=== PATIENT | male | born 1970 | race Caucasian/White ===

== ENCOUNTER 2017-01-15 15:42 | Emergency (ER) | payer BC, OTHER ==
[~2017-01-15] VITALS: Ht 162.6 cm; Wt 108.0 kg
[2017-01-15 15:57] VITALS: Ht 162.6 cm; Wt 108.0 kg
[2017-01-15 16:36] LABS: ADD SCAN DIFF NO
[2017-01-15 16:41] LABS: BASOPHIL # 0.1 10^3/ul (0.0-0.1); BASOPHILS % 0.4 % (0.0-2.0); EOSINOPHILS # 0.2 10^3/ul (0.0-0.5); EOSINOPHILS % 1.7 % (0.0-7.0); HEMATOCRIT 43.3 % (42.0-52.0); HEMOGLOBIN 14.9 g/dl (14.0-18.0); LYMPHOCYTES # 2.1 10^3/ul (0.8-2.9); LYMPHOCYTES % 17.9 % (15.0-51.0); MEAN CORPUSCULAR HEMOGLOBIN 31.5 pg (29.0-33.0); MEAN CORPUSCULAR HGB CONC 34.4 g/dl (32.0-37.0); MEAN CORPUSCULAR VOLUME 91.5 fl (82.0-101.0); MONOCYTE # 1.1 10^3/ul (0.3-0.9); MONOCYTES % 9.2 % (0.0-11.0); NEUTROPHIL # 8.1 10^3/ul (1.6-7.5); NEUTROPHILS % 70.3 % (39.0-77.0); PLATELET COUNT 240 10^3/UL (140-415); RED BLOOD COUNT 4.73 10^6/ul (4.70-6.10); RED CELL DISTRIBUTION WIDTH 13.1 % (11.5-14.5); WHITE BLOOD COUNT 11.5 10^3/ul (4.8-10.8)
[2017-01-15 16:42] LABS: ADD UMIC YES; UR ASCORBIC ACID NEGATIVE (NEGATIVE); UR BILIRUBIN (Dip) NEGATIVE (NEGATIVE); UR BLOOD (Dip) 2+ mg/dL (NEGATIVE); UR CLARITY CLEAR (CLEAR); UR COLOR YELLOW (YELLOW); UR GLUCOSE (Dip) NEGATIVE (NEGATIVE); UR KETONES (Dip) NEGATIVE (NEGATIVE); UR LEUKOCYTE ESTERASE (Dip) TRACE Leu/ul (NEGATIVE); UR NITRITE (Dip) NEGATIVE (NEGATIVE); UR RBC 6 /HPF (0-5); UR SPECIFIC GRAVITY (Dip) 1.012 (1.003-1.030); UR TOTAL PROTEIN (Dip) NEGATIVE (NEGATIVE); UR UROBILINOGEN (Dip) NEGATIVE (NEGATIVE)
[2017-01-15 16:57] LABS: ALBUMIN/GLOBULIN RATIO 1.31; BILIRUBIN,INDIRECT 0.2 mg/dl (0-1.1); BILIRUBIN,TOTAL 0.2 mg/dl (0.2-1.3); CALCIUM 9.8 mg/dl (8.4-10.2); CREATININE 1.7 mg/dl (0.61-1.24); POTASSIUM 4.6 mmol/L (3.5-5.1); TOTAL PROTEIN 8.8 g/dl (6.1-8.1)
--- NOTE | 2017-01-15 19:04 | RADRPT ---
PROCEDURE: CT abdomen and pelvis without intravenous contrast. CLINICAL INDICATION: Right lower quadrant pain. TECHNIQUE: CT of the abdomen/pelvis was performed utilizing axial images with reconstructions in s agittal and coronal planes. The administered radiation dose is CTDI 23 mGy, DLP 1372.12 mGy-cm. One or more of the following dose reduction techniques were used: Automated exposure control, Adjustment of the mA and/or kV according to patient size, or Use of iterative reconstruction technique. COMPARISON: There are no similar studies submitted for comparison. FINDINGS: Lung bases: The lung bases are clear.The heart is normal size without pericardial effusion. CT ABDOMEN: Evaluation of the abdominal viscera is limited without intravenous contrast. Gastrointestinal tract: There is no bowel obstruction.The appendix is normal size without inflammato ry changes.No abnormal colonic wall thickening is identified.There is no pneumoperitoneum. Liver: The liver is normal in size. There is hepatic fatty infiltration. There is no intrahepatic d uctal dilatation. Gallbladder: The gallbladder is grossly unremarkable. Pancreas: The pancreas is grossly unremarkable. Spleen: The spleen is normal in size. Kidneys: The kidneys are normal in size and contour. There are multiple nonobstructive bilateral apryl al calculi with the largest in the right upper pole measuring 8 mm. There is an obstructing right mi d the ureteral calculus measuring 5 mm with mild right hydronephrosis. There is mild right periuret eral stranding. There is no left-sided hydronephrosis. Adrenal glands: The bilateral adrenal glands are unremarkable. Retroperitoneum: There is no retroperitoneal adenopathy.The aorta is normal in caliber. There is a s mall fat containing umbilical hernia. CT PELVIS: Pelvic organs: The prostate is normal size. There are coarse calcifications in the prostate suggest ing chronic prostatitis. Bladder: The bladder is not distended limiting evaluation. There is no pelvic free fluid.No pelvic adenopathy is identified. Osseous structures: No destructive lytic or blastic osseous lesion is identified. There is severe di sk space narrowing at L4-5. IMPRESSION: Evaluation of the abdominal viscera is limited without intravenous contrast. 1. There is a 5 mm obstructing right mid ureteral calculus with mild right hydronephrosis as well a s mild right periureteral stranding. 2. Multiple nonobstructive bilateral renal calculi with the largest in the right upper pole measuri ng 8 mm. 3. Hepatic fatty infiltration. Correlate with LFTs. 4. Prostatic calcifications suggesting chronic prostatitis. Correlate clinically. Further findings as detailed above. RPTAT: HVF .Gerard Jackson MD, Date Time Electronically viewed and signed by .Gerard Jackson MD, on 01/15/2017 19:04 .F/
[2017-01-15] MEDS ORDERED: HYDR-906 PO (19:11)
[2017-01-15] MEDS ORDERED: IBUP800T25 PO (19:11)
--- NOTE | 2017-01-15 19:15 | ERD ---
ER Documentation Chief Complaint Date/Time DATE: 01/15/17 TIME: 19:12 Chief Complaint right side ap x 1 week; no n/v/d HPI 46-year-old male is complaining of right-sided mid abdominal pain that he has had for about 1 week. States the pain is sharp in 8 out of 10 and constant nonradiating. He denies any fever. He denies any nausea or vomiting or diarrhea. He denies any dysuria hematuria or increased urinary frequency. He denies any change with food. ROS All systems reviewed and are negative except as per history of present illness. Medications Home Meds Active Scripts Hydrocodone/Acetaminophen (Orange 5-325 Tablet) 1 Each Tablet, 1 TAB PO Q6H Y for PAIN, #20 TAB Prov:DAMON CASTRO PA-C 01/15/17 Ibuprofen* (Motrin*) 800 Mg Tab, 800 MG PO Q6, #30 TAB Prov:DAMON CASTRO PA-C 01/15/17 Allergies Allergies: Coded Allergies: No Known Allergy (Unverified , 11/25/14) PMhx/Soc Medical and Surgical Hx: pt denies Medical Hx, pt denies Surgical Hx Hx Alcohol Use: No Hx Substance Use: No Hx Tobacco Use: Yes Smoking Status: Current every day smoker FmHx Family History: No diabetes Physical Exam Vitals Vital Signs Date Time Temp Pulse Resp B/P Pulse Ox O2 Delivery O2 Flow Rate FiO2 01/15/17 15:57 98.2 82 18 168/117 98 Physical Exam General: well developed, well nourished, alert, nontoxic, no distress Head: normocephalic, atraumatic Neck: Supple, nontender, no lymphadenopathy, no midline tenderness Respiratory: Clear to auscaultation bilaterally, speaks in full sentences, no use of accesory muscles or labored breathing, no rales, ronchi, or wheezing Cardiovascular: RRR, No murmurs GI: soft, non tender, non distended, negative murphys sign, negative mcburneys point tenderness, no cva tenderness bilaterally, no rebound or guarding Back: no midline tenderness, no step offs or bony abnormalities, sensation to light touch in tact Result Diagram: 01/15/17 1625 01/15/17 1615 Results 24 hrs Laboratory Tests Test 01/15/17 16:15 6/24/17 16:25 Sodium Level 144mmol/L Potassium Level 4.6mmol/L Chloride Level 107mmol/L Carbon Dioxide Level 24mmol/L Anion Gap 18 Blood Urea Nitrogen 16mg/dl Creatinine 1.70mg/dl Glucose Level 90mg/dl Calcium Level 9.8mg/dl Total Bilirubin 0.2mg/dl Direct Bilirubin 0.00mg/dl Indirect Bilirubin 0.2mg/dl Aspartate Amino Transf (AST/SGOT) 26IU/L Alanine Aminotransferase (ALT/SGPT) 51IU/L Alkaline Phosphatase 94IU/L Total Protein 8.8g/dl Albumin 5.0g/dl Globulin 3.80g/dl Albumin/Globulin Ratio 1.31 Lipase 188U/L White Blood Count 11.510^3/ul Red Blood Count 4.7310^6/ul Hemoglobin 14.9g/dl Hematocrit 43.3% Mean Corpuscular Volume 91.5fl Mean Corpuscular Hemoglobin 31.5pg Mean Corpuscular Hemoglobin Concent 34.4g/dl Red Cell Distribution Width 13.1% Platelet Count 07489^3/UL Mean Platelet Volume 10.0fl Neutrophils % 70.3% Lymphocytes % 17.9% Monocytes % 9.2% Eosinophils % 1.7% Basophils % 0.4% Nucleated Red Blood Cells % 0.0/100WBC Neutrophils # 8.110^3/ul Lymphocytes # 2.110^3/ul Monocytes # 1.110^3/ul Eosinophils # 0.210^3/ul Basophils # 0.110^3/ul Nucleated Red Blood Cells # 0.010^3/ul Urine Color YELLOW Urine Clarity CLEAR Urine pH 5.0 Urine Specific Warden 1.012 Urine Ketones NEGATIVEmg/dL Urine Nitrite NEGATIVEmg/dL Urine Bilirubin NEGATIVEmg/dL Urine Urobilinogen NEGATIVEmg/dL Urine Leukocyte Esterase TRACELeu/ul Urine Microscopic RBC 6/HPF Urine Microscopic WBC 7/HPF Urine Hemoglobin 2+mg/dL Urine Glucose NEGATIVEmg/dL Urine Total Protein NEGATIVEmg/dl Procedures/MDM Patient is a 46-year-old male who has right sided abdominal pain. He is afebrile. His blood pressure is markedly elevated 168/117 however he states he does not have a history of high blood pressure he states he believes it is secondary to pain and he just had a complete physical examination within the last 2 months by his primary care doctor and was not hypertensive at that time. His lab work shows a mildly elevated white blood cell count and CT scan is consistent with renal colic. Reviewed findings with Dr. Pittman who agrees this patient is suitable for outpatient management. Recommended this patient follow up with her primary care doctor within 48 hours or return to the emergency room for any worsening of symptoms. However this time I do believe there is suitable for outpatient management. I answered all their questions and they agreed with the plan and were discharged home. Departure Diagnosis: Primary Impression: Renal colic Condition: Stable Patient Instructions: Kidney Stone W/ Colic Additional Instructions: Call your primary care doctor TOMORROW for an appointment during the next 1-2 days.See the doctor sooner or return here if your condition worsens before your appointment time. DAMON CASTRO PA-C Jan 15, 2017 19:15
[2017-01-15 19:23] VITALS: BP 179/100; PULSE 67; RESP 18; TEMP 98.4
== END 2017-01-15 19:25 | disposition home or self-care (01) ==
LOC: FTE 15:42
DX: N23 Unspecified renal colic (principal); F17.210 Nicotine dependence, cigarettes, uncomplicated
CPT/HCPCS: 36415; 74176; 80053; 81001; 83690; 85025; Z7502